=== PATIENT | male | born 1965 | race Caucasian/White ===

== ENCOUNTER 2023-07-01 08:03 | Outpatient (REF) | payer BC, SELFPAY ==
--- NOTE | 2023-07-01 08:07 | EMG_ITS ---
Bilateral median and ulnar motor and sensory studies were performed. Bilateral radial and median and lateral antecubital sensory studies were performed and paraspinal muscles were tested with a needle. IMPRESSION: 1. Zagr-sp-[id number] bilateral median neuropathy across carpal tunnel. 2. Mild bilateral ulnar neuropathy across cubital tunnel. MD MARCIA Moreno/TEN / [id number]
== END 2023-07-01 08:04 | disposition home or self-care (01) ==
LOC: HO.NEURO 08:03
PROVIDERS: PCP Internal Medicine; Visit Provider Internal Medicine
DX: R20.2 Paresthesia of skin (principal)
CPT/HCPCS: 95886; 95913

== ENCOUNTER 2023-08-27 10:56 | Outpatient (AMB) | payer BC, SELFPAY ==
--- NOTE | 2023-08-27 11:13 | A.OFFVIS_ITS ---
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 EMG done on 07/01/23. Pt states he gets numbness in his fingers, wakes up at night with pain. Pt states sometimes at night he is unable to close his fingers and make a fist. Pt states he has not been able to ride his motorcycle for the past 2 years due to the numbness. 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 The patient reports that these symptoms have been ongoing for years. He reports that symptoms are intermittent, but daily. Patient reports that symptoms are worse at night, and he regularly has pain that he had prevents him from sleeping or awakens him from sleep. EMG previously done on 07/01/[address] Maldonado. Patient also reports occasional locking and catching of the left small finger. Review of Systems Const All systems reviewed & are unremarkable except as noted in HPI and below Physical Exam Const Other: Patient is alert, oriented, cooperative, and in no acute distress HEENT Head: Yes normocephalic and Yes atraumatic Resp Effort & Inspection: normal respiratory effort and able to speak in complete sentences Cardio Jugular venous distension: no JVD Neuro General: gait normal Cognition (Neuro): normal cognition Extrem Other: Neuro: Normal sensation to the tips of all digits bilaterally today No thenar or intrinsic wasting. Good APB muscle firing and good finger cross. Vascular: Capillary refill brisk. ROM: Patient can make a fist and extend all their digits. No visible or palpable locking or catching of any digit bilaterally Skin: No lacerations or abrasions noted. General: No ecchymosis. No erythema or evidence of infection. Positive Tinel's test at the wrist bilaterally Psych Appearance: grossly normal Mental Status: mental status grossly normal Results Reviewed Results Reviewed: Nerve conduction study IMPRESSION: 1. Rsya-vc-nithlbic bilateral median neuropathy across carpal tunnel. 2. Mild bilateral ulnar neuropathy across cubital tunnel. Assessment & Plan Assessment & Plan (1) Carpal tunnel syndrome on both sides: Code(s): G56.03 - Carpal tunnel syndrome, bilateral upper limbs Category: Medical (2) Cubital tunnel syndrome, bilateral: Code(s): G56.23 - Lesion of ulnar nerve, bilateral upper limbs Category: Medical (3) Trigger finger, left little finger: Code(s): M65.352 - Trigger finger, left little finger Category: Medical Plan 1. Carpal tunnel syndrome, right 2. Cubital tunnel syndrome, right Symptoms intermittent, but daily, worse at night Pain regularly awakens patient from sleep or prevents him from sleeping I educated the patient about the condition. I discussed both operative and nonoperative treatment options. The patient would like to proceed with surgery. Patient states that the right side is more bothersome to him, so we will perform surgery on the side 1st. The risks and benefits of operative treatment were discussed with the patient and the patient wishes to proceed with surgery. These risks include, but are not limited to, risk of damage to blood vessels, nerves, tendons, infection, recurrence, incomplete relief of preoperative symptoms, persistent pain, possible need for further surgery, and the risks associated with regional blocks and/or anesthesia. Plan is to take the patient to the operating room at some point in the next few weeks for the following procedures: 1. Cubital tunnel release, right 2. Carpal tunnel release, right All of the preoperative paperwork including the consent was discussed today. All of the patient's questions were answered in the clinic today. The patient understands that they will be in contact with our surgical elastic knitter hand frame to discuss scheduling their procedure. Patient denies diabetes, blood thinners, asthma, heart issues, lung issues, kidney issues, or current smoking. Patient will follow-up in 10-14 days after procedure for postop wound check and staple removal. 3. Cubital tunnel syndrome, left Symptoms intermittent, but daily, worse at night Patient reports that he finds the right side more bothersome, so he would like to have surgery in the site 1st At postop visit from 1st procedure, we will discuss potential surgical treatment of left cubital tunnel 4. carpal tunnel syndrome, left Symptoms intermittent, but daily, worse at night Patient reports that he finds the right side more bothersome, so he would like to have surgery in the site 1st At postop visit from 1st procedure, we will discuss potential surgical treatment for left carpal tunnel 5. Trigger finger, left small finger Patient reports that left small finger does lock and catch on a regular basis, however this was not reproducible locking office today Patient feels that carpal and cubital tunnel on the right side is most bothersome to him at this time, so we will proceed with surgeries on the right side And postop visit, we will discuss potential treatment options for left small finger trigger finger, and surgery can be done at the same time as any potential left carpal and/or cubital tunnel release. Coding Level of Care Code New Pt Level 4 (10416) Diagnoses Carpal tunnel syndrome on both sides G56.03 Cubital tunnel syndrome, bilateral G56.23 Trigger finger, left little finger M65.352
== END 2023-08-27 14:14 | disposition home or self-care (01) ==
PROVIDERS: PCP Internal Medicine; Referring Provider Internal Medicine
DX: G56.03 Carpal tunnel syndrome, bilateral upper limbs (principal); G56.23 Lesion of ulnar nerve, bilateral upper limbs; M65.352 Trigger finger, left little finger
CPT/HCPCS: 99204

== ENCOUNTER → 2023-08-27 10:56 | Outpatient (BNVA) | payer BC, SELFPAY | PROVIDERS: PCP Internal Medicine ==

== ENCOUNTER 2023-10-15 12:55 | Outpatient (AMB) | payer BC, SELFPAY ==
--- NOTE | 2023-10-15 13:01 | A.OFFVIS_ITS ---
Vital Signs 10/15/23 13:03 Height 5 ft 11 in Weight 280 lb BMI 39.0 Handedness Right Intake Visit Reasons: Preop RT cubital/CTR 10/23/23 AR Intake Note: Oscar is a 57 year old right hand dominant male who presents today pre operatively for his right cubital and carpal tunnel release, DOS: 10/23/23 w/ AR. Pt brought in [employer] paper work to be faxed. Allergies No Known Allergies Allergy (Verified 10/15/23 13:04) HPI HPI Preop RT cubital/CTR 10/23/23 AR: Details: Patient is a 57-year-old male who presents for preoperative evaluation for right carpal and cubital tunnel releases on 10/23/[address] Simpson. Patient reports that his symptoms have remained unchanged since prior evaluation. He reports that symptoms are intermittent, but daily. Patient reports that symptoms are worse at night, and he regularly has pain that he had prevents him from sleeping or awakens him from sleep. EMG previously done on 07/01/[address] Maldonado. Patient also reports occasional locking and catching of the left small finger. no other acute complaints or concerns at this time. 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 Good APB muscle firing and good finger cross. Vascular: Capillary refill brisk. ROM: Patient can make a fist and extend all their digits. No visible or palpable locking or catching of any digit bilaterally Skin: No lacerations or abrasions noted. General: No ecchymosis. No erythema or evidence of infection. Positive Tinel's test at the wrist bilaterally Psych Appearance: grossly normal Mental Status: mental status grossly normal Assessment & Plan Assessment & Plan (1) Cubital tunnel syndrome, bilateral: Code(s): G56.23 - Lesion of ulnar nerve, bilateral upper limbs Category: Medical (2) Carpal tunnel syndrome on both sides: Code(s): G56.03 - Carpal tunnel syndrome, bilateral upper limbs Category: Medical (3) Trigger finger, left little finger: Code(s): M65.352 - Trigger finger, left little finger Category: Medical Plan 1. Carpal tunnel release, right 2. Cubital tunnel release, right Plan is to proceed with previously scheduled surgery with Dr. Simpson on 10/23/2023 for right cubital and right carpal tunnel releases Patient is amenable to this plan Surgery will proceed on 10/23/2023 Patient will follow-up in office 2 weeks postoperatively Coding Level of Care Code Est Pt Level 3 (64712) Diagnoses Cubital tunnel syndrome, bilateral G56.23 Carpal tunnel syndrome on both sides G56.03 Trigger finger, left little finger M65.352
[2023-10-15 13:03] VITALS: BMI 39.0
== END 2023-10-15 13:32 | disposition home or self-care (01) ==
PROVIDERS: PCP Internal Medicine
DX: G56.23 Lesion of ulnar nerve, bilateral upper limbs (principal); G56.03 Carpal tunnel syndrome, bilateral upper limbs; M65.352 Trigger finger, left little finger
CPT/HCPCS: 99024

== ENCOUNTER → 2023-10-15 12:55 | Outpatient (BNVA) | payer BC, SELFPAY | PROVIDERS: PCP Internal Medicine ==

== ENCOUNTER 2023-10-23 06:01 | Day surgery (SDC) | payer BC, SELFPAY ==
--- NOTE | 2023-10-21 14:15 | P.CONAN_ITS ---
Documented by User: Mercy Apodaca NP 10/21/23 14:18 HPI - Anesthesia Eval Consult details Narrative: 57yo M for Right Cubital Tunnel Release, Carpal Tunnel Release [facility] Active Problems Active Problems: All Active Problems Trigger finger, left little finger (Acute) Cubital tunnel syndrome, bilateral (Acute) Carpal tunnel syndrome on both sides (Acute) Past Medical History Medical History Obesity HTN (hypertension) Surgical History Surgical History Hx of vasectomy Hx of toe surgery Hx of wisdom tooth extraction Hx of tonsillectomy Hx of rotator cuff surgery Hx of basal cell carcinoma excision Hx of rotator cuff surgery Hx of cholecystectomy Social History Social History Alcohol intake: current Alcohol intake frequency: holidays/special occasions only Patient Tobacco Use Status: Never used Tobacco Use of substances other than those prescribed or required for medical reasons: No Are you DNR?: No Advance Directives: No Advance Directives Information Provided: Yes Current occupational status: employed 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 @ [employer] Allergies Allergy/AdvReac Type Severity Reaction Status Date / Time No Known Allergies Allergy Verified 10/23/23 06:16 Home Medications ?Medication ?Instructions ?Recorded ?Confirmed ?Last Taken ?Type losartan 50 mg tablet 50 mg PO DAILY 08/27/23 10/23/23 10/23/23 05:00 History terbinafine HCl 250 mg tablet 250 mg PO DAILY 10/15/23 10/23/23 Unknown History Assessment and Plan Assessment Anesthesia Assessment: Chart Reviewed Documented by User: Alondra Carlton MD 10/23/23 08:09 PMFSH Past Medical History Medical History Obesity HTN (hypertension) Family History Family history of problems with anesthesia: No Surgical History Surgical History Hx of vasectomy Hx of toe surgery Hx of wisdom tooth extraction Hx of tonsillectomy Hx of rotator cuff surgery Hx of basal cell carcinoma excision Hx of rotator cuff surgery Hx of cholecystectomy History of Problems with Anesthesia: No Social History Social History Alcohol intake: current Alcohol intake frequency: holidays/special occasions only Patient Tobacco Use Status: Never used Tobacco Use of substances other than those prescribed or required for medical reasons: No Are you DNR?: No Advance Directives: No Advance Directives Information Provided: Yes Current occupational status: employed 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 @ [employer] Allergies Allergy/AdvReac Type Severity Reaction Status Date / Time No Known Allergies Allergy Verified 10/23/23 06:16 Home Medications ?Medication ?Instructions ?Recorded ?Confirmed ?Last Taken ?Type losartan 50 mg tablet 50 mg PO DAILY 08/27/23 10/23/23 10/23/23 05:00 History terbinafine HCl 250 mg tablet 250 mg PO DAILY 10/15/23 10/23/23 Unknown History Exam Airway Mallampati Class: II TM Dist: >3cm Neck ROM: Full Heart: rrr Lungs: cta Assessment and Plan Assessment Anesthesia Assessment: Anesthesia Plan Discussed Final Anesthetic Review Family History of Problems with Anesthesia: No History of Problems with Anesthesia: No NPO: Yes ASA Class: III (obesity) Final Preanesthetic Review: No Changes in Pt Med Stat, Meds/Allgs Chart Reviewed, Consent Obtained/Reviewed and Anes Risks/Benef Reviewed Patient Risk: Intermediate Procedure Risk: Low Anesthetic Plan Anesthetic Plan: GA Disposition: Standard PACU
[2023-10-21 14:19] VITALS: BMI 39.0
[2023-10-23 06:16] VITALS: BMI 38.9
[2023-10-23 06:47] VITALS: BP 152/73; PULSE 62; RESP 15; TEMP 37.1; O2SAT 95
[2023-10-23] MEDS: Lactated Ringers 1,000 ML 100 ML IVCONT (06:48)
--- NOTE | 2023-10-23 07:38 | MHC.SHP ---
Pre-Procedural Eval Section A - 24 Hr Update-Section A only Date of Service: 10/23/23 The patient is an INPATIENT: No Changes since office visit: No Cold of Flu in the past 2 weeks, No New Medical Problems, No Changes in Medication and No Patient answered all questions The patient has been examined within 24 hours of the surgical procedure. The History & Physical has been completed within 30 days and I have reviewed it.: Yes Section B - Complete if H&P > 30 days Chief Complaint: carpal tunnel,lesion of ulnar nerve Allergies: Allergies Allergy/AdvReac Type Severity Reaction Status Date / Time No Known Allergies Allergy Verified 10/23/23 06:16 Plan I have reviewed the history and physical and performed a pertinent physical examination on my patient. No changes have occurred unless specified. Time Spent With Patient Time: Total time managing care of this patient today ____ minutes.
--- NOTE | 2023-10-23 07:40 | W.PM.OPN ---
Operative Note Operative Note Date of Service: 10/23/23 Narrative: Operative Note Narrative: Preop diagnosis: 1. Right Cubital tunnel syndrome 2. Right carpal tunnel syndrome Postop diagnosis: Same Procedure: 1. Right Cubital Tunnel Release 2. Right carpal tunnel release Surgeon: Jordyn Simpson MD Assistant Public Defender: Brandyn LINDSAY Anesthesia: General Anesthesia Findings: Thickening and fibrosis about the ulnar nerve at the cubital tunnel Implants: none Tourniquet time: 45 minutes EBL: 5.0 ml Specimen: none Drains: None Complications: None Disposition: Brought to the recovery room in stable condition Plan: Follow-up in 10-14 days for wound check, and suture removal Indications: The patient is 57 years old with right cubital tunnel syndrome and right carpal tunnel syndrome . The risks and benefits of operative treatment, including but not limited to risk of damage to blood vessels, nerves, tendons, infection, recurrence, persistent pain or numbness, incomplete resolution of preoperative symptoms, or need for further surgery were discussed with the patient and they wished to proceed with surgery. Procedure: Once consent was obtained patient was brought back to the operating suite and placed in the operating table in a supine position. Perioperative antibiotics and anesthesia was administered by the anesthesia team. The limb was prepped and draped in a standard surgical fashion, and a sterile tourniquet applied to the proximal aspect of the right upper extremity. The limb was elevated exsanguinated with Esmarch bandage and the tourniquet inflated to 250 mm of mercury for a total tourniquet time of 45 minutes. A 6 cm gently curved but longitudinally oriented incision was made centered over the cubital tunnel of the right upper extremity. Incision was made through the skin to the subcutaneous tissues using a # 15 Blade. I then dissected down to the level of the medial epicondyle and the cubital tunnel using tenotomy scissors. Care was taken to protect the medial antebrachial cutaneous nerve. The ulnar nerve was identified just posterior to the medial intermuscular septum. The ulnar nerve was released in a proximal to distal direction using tenotomy in iris scissors while directly visualizing and protecting the ulnar nerve. Thickening and fibrosis was appreciated about the ulnar nerve as it passed through the cubital tunnel. The ulnar nerve was assessed as I passed the elbow through full flexion and extension and was found to remain stable within its groove. At this point the tourniquet was deflated and hemostasis obtained with a brief period of local pressure and bipolar electrocautery. The wound was copiously irrigated with normal saline. The subcutaneous layer was closed with 4-0 Vicryl suture, and the skin edges were reapproximated with 5-0 nylon suture. The wounds were infiltrated with some 0.25% plain Marcaine for postop pain control and sterile dressings were applied. The patient appears to have tolerated the procedure well and with no complications. All digits were well vascularized at the conclusion of the case.
[2023-10-23 09:23] VITALS: BP 126/75; PULSE 66; RESP 16; TEMP 36.3; O2SAT 98
[2023-10-23 09:28] VITALS: BP 138/71; PULSE 75; RESP 16; O2SAT 95
[2023-10-23 09:33] VITALS: BP 126/75; PULSE 69; RESP 16; O2SAT 95
[2023-10-23 09:38] VITALS: BP 131/79; PULSE 64; RESP 16; O2SAT 96
[2023-10-23 09:53] VITALS: BP 134/68; PULSE 61; RESP 16; TEMP 36.3; O2SAT 97
[2023-10-23 10:27] LABS: HBc Num1 0.12 S/CO (0.00-0.79); HBsAGNum1 0.33 S/CO (0.00-0.99); HIV AB/AG Nonreactive (Nonreactive); HIV Num 1 0.11 S/CO (0.00-0.99); Hepatitis B Core Antibody Nonreactive (Nonreactive); Hepatitis B Surface Antigen Negative (Negative); ~HepC Num1 0.08 S/CO (0.00-0.79); ~Hepatitis B Surface Antibody REACTIVE (Nonreactive); ~Hepatitis C Antibody Nonreactive (Nonreactive)
== END 2023-10-23 10:50 | disposition home or self-care (01) ==
PROVIDERS: PCP Internal Medicine; Visit Provider Orthopaedic Surgery
PROC: (CPT 64718; principal; 2023-10-23 07:30)
PROC: (CPT 64721; 2023-10-23 07:30)
DX: G56.21 Lesion of ulnar nerve, right upper limb (principal); G56.01 Carpal tunnel syndrome, right upper limb; I10 Essential (primary) hypertension
CPT/HCPCS: 64718; 64721; 36415; 86704; 86706; 86803; 87340; 87389; J0131; J0690; J1100; J2405; J2704; J2795; J3010

== ENCOUNTER → 2023-10-23 06:01 | Outpatient (BNV) | payer BC, SELFPAY | PROVIDERS: PCP Internal Medicine; Visit Provider Orthopaedic Surgery | DX: G56.21 Lesion of ulnar nerve, right upper limb (principal); G56.01 Carpal tunnel syndrome, right upper limb | CPT/HCPCS: 64718; 64721 ==

== ENCOUNTER 2023-11-05 14:17 | Outpatient (AMB) | payer BC, SELFPAY ==
--- NOTE | 2023-11-05 14:37 | A.OFFVIS_ITS ---
Intake Visit Reasons: PO RT cubital/CTR 10/23/23 AR Intake Note: Oscar is a 57 year old right hand dominant male who presents today post operatively S/P Right Carpal & Cubital Tunnel Release w/ Dr Simpson DOS: 10/23/2023. Patient reports he is no longer having numbness and tingling, mild soreness at site of release. Sutures have been removed and steri strips applied. Allergies No Known Allergies Allergy (Verified 11/05/23 14:40) HPI HPI PO RT cubital/CTR 10/23/23 AR: Details: Patient is a 57-year-old male who presents for postoperative evaluation status post right cubital tunnel release and right carpal tunnel release, DOS 10/23/2023. Today, the patient reports that he is feeling very well, and then the numbness and tingling he was previously experiencing in his right hand has completely resolved. The patient reports that he has some mild soreness about the incision site on his wrist, but he feels that this is perfectly normal due to having surgery. The patient reports no discharge, increasing pain, or increasing erythema about either of the surgery sites. The patient states that he does have bilateral cubital and carpal tunnel syndromes, and understands that he will eventually need surgery on the left side, but he would like to hold off until January to sign up for surgery, as he has a busy 2-3 months ahead. No other acute complaints or concerns at this time. 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 Good APB muscle firing and good finger cross. Vascular: Capillary refill brisk. Pain: mild ?soreness? to palpation about the incision site on the right volar wrist No tenderness to palpation about the incision site on the right elbow ROM: Patient can make a fist and extend all their digits. Skin: Well-healing and well-approximated incision sites noted on the right volar wrist and right elbow General: No ecchymosis. No erythema or evidence of infection. [] Assessment & Plan Assessment & Plan (1) Cubital tunnel syndrome, bilateral: Code(s): G56.23 - Lesion of ulnar nerve, bilateral upper limbs Category: Medical (2) Carpal tunnel syndrome on both sides: Code(s): G56.03 - Carpal tunnel syndrome, bilateral upper limbs Category: Medical Plan 1. Right cubital tunnel syndrome status post cubital tunnel release 2. Right carpal tunnel syndrome status post carpal tunnel release DOS 10/23/2023 Patient appears to be recovering well postoperatively Patient is educated about the typical recovery course Patient is given clearance to return to work with a 2 lb weight restriction in his right hand for a further 2 weeks Patient is educated about the signs and symptoms of infection and/or other complications, and is told to call our office if he experiences any of the symptoms Due to patient's good range of motion of his right hand and elbow, he does not require occupational therapy at this time Patient is amenable to this plan 3. Cubital tunnel syndrome, left 4. Carpal tunnel syndrome, left Symptoms intermittent, but daily, worse at night Patient would like to hold off on surgical intervention on the left side until January, as he has a busy few months ahead and would not be able to tolerate surgery and recovery during that time. Patient will call when he is ready to discuss surgical intervention for left cubital tunnel syndrome and left carpal Patient is educated about the potential side effects of waiting too long for carpal and cubital tunnel releases, namely dense numbness and both apb and intrinsic muscle wasting Patient understands these risks Patient will follow-up as needed with any acute concerns Coding Level of Care Code Global (01543) Diagnoses Cubital tunnel syndrome, bilateral G56.23 Carpal tunnel syndrome on both sides G56.03
== END 2023-11-05 15:17 | disposition home or self-care (01) ==
PROVIDERS: PCP Internal Medicine
DX: G56.23 Lesion of ulnar nerve, bilateral upper limbs (principal); G56.03 Carpal tunnel syndrome, bilateral upper limbs
CPT/HCPCS: 99024

== ENCOUNTER → 2023-11-05 14:17 | Outpatient (BNVA) | payer BC, SELFPAY | PROVIDERS: PCP Internal Medicine ==